=== PATIENT | female | born 1990 ===

== ENCOUNTER 2024-11-29 10:00 | Outpatient (CLI) | payer BC, SELFPAY | END 2024-11-29 10:01 | disposition home or self-care (01) | LOC: NFLDREF 10:02 | PROVIDERS: PCP Family Medicine; Visit Provider Physician Assistant | DX: E04.9 Nontoxic goiter, unspecified (principal) | CPT/HCPCS: 84443 ==

== ENCOUNTER 2024-12-06 13:12 | Outpatient (CLI) | payer BC, SELFPAY ==
--- NOTE | 2024-12-06 13:15 | CRLHL7_ITS ---
For Patients: As a result of the Century Cures Act, medical imaging exams and procedure reports are released immediately into your electronic medical record. You may view this report before your referring provider. If you have questions, please contact your health care provider. INDICATION: Nontoxic goiter COMPARISON: 08/23/2023 TECHNIQUE: Ponce scale and color Doppler images were acquired of the thyroid gland. FINDINGS: Circumscribed anechoic cyst within the left thyroid lobe measures 5.4 x 3.9 x 3.7 cm, TR 1, previously measuring 5.3 x 3.4 x 3.2 cm. The right lobe measures 4.6 x 1.6 x 1.2 cm and the left lobe measures 7.0 x 4 point by 4.2 cm in size. Isthmus measures 2 millimeters. The color Doppler images demonstrate normal vascularity. There is no evidence of cervical lymphadenopathy or parathyroid mass. IMPRESSION: No significant change. Dictated by John Norton MD @ 12/06/2024 5:29:46 PM (Electronically Signed)
--- NOTE | 2024-12-06 14:00 | CRLHL7_ITS ---
For Patients: As a result of the Century Cures Act, medical imaging exams and procedure reports are released immediately into your electronic medical record. You may view this report before your referring provider. If you have questions, please contact your health care provider. INDICATION: Chronic sinusitis. COMPARISON: None. TECHNIQUE: Noncontrast CT of the paranasal sinuses. FINDINGS: Maxillary sinuses are clear. Non obstructing Genie air cell on the left. Os middle complexes are patent. Nasal septal deviation to the right measured approximately 3 mm from midline. Frontal sinuses and mastoid air cells are clear. Sphenoid sinuses are clear. Bilateral sphenoid ostia patent. Mastoid air cells are clear. No facial fractures. Normal orbits bilaterally. IMPRESSION: 1. Paranasal sinuses and mastoid air cells are clear. 2. No facial fracture Please note that all CT scans at this facility use dose modulation, iterative reconstruction, and/or weight-based dosing when appropriate to reduce radiation dose to as low as reasonably achievable. Dictated by Pb Yoder MD @ 12/07/2024 10:32:25 AM (Electronically Signed)
== END 2024-12-06 13:13 | disposition home or self-care (01) ==
LOC: US 13:14
PROVIDERS: PCP Family Medicine; Visit Provider Physician Assistant
DX: E04.9 Nontoxic goiter, unspecified (principal); J32.9 Chronic sinusitis, unspecified
CPT/HCPCS: 70486; 76536

== ENCOUNTER 2025-02-02 09:29 | Day surgery (SDC) | payer BC, SELFPAY ==
[2025-02-02] VITALS (10 sets, daily range): BP systolic 106–125; BP diastolic 73–95; PULSE 47–62; RESP 12–20; TEMP 36.6–36.9; O2SAT 94–100; BMI 17.4
[2025-02-02 10:05] LABS: Ur HCG Qualitative* Negative (Negative)
--- NOTE | 2025-02-02 10:17 | P.ANES_ITS ---
Anesthesia Charges Start Date/Time Anesthesia Start Date: 02/02/25 Anesthesia Start Time: 11:15 Stop Date/Time Anesthesia Stop Date: 02/02/25 Anesthesia Stop Time: 12:03 Coding CPT Codes CPT Codes: ANESTH NOSE/SINUS SURGERY - 38195 ([id number]) P1 - NORMAL HEALTHY PATIENT, QK - FINISHING MANAGER 2-4 CNCRNT ANES PROC, QX - COMPUTER DISCOVERY TEACHER SVKaylen W/ MED DIRECTION
--- NOTE | 2025-02-02 10:17 | W.ANESCHARGE ---
Anesthesia Charges Start Date/Time Anesthesia Start Date: 02/02/25 Anesthesia Start Time: 11:15 Stop Date/Time Anesthesia Stop Date: 02/02/25 Anesthesia Stop Time: 12:03 Coding CPT Codes CPT Codes: ANESTH NOSE/SINUS SURGERY - 13074 ([id number]) P1 - NORMAL HEALTHY PATIENT, QK - CREDIT RISK SPECIALIST 2-4 CNCRNT ANES PROC, QX - SIDE SEAM MACHINE OPERATOR SVKaylen W/ MED DIRECTION
[2025-02-02] MEDS: LACTATED RINGERS 1000 ML 1,000 ML 100 ML IV (10:30)
[2025-02-02] MEDS: SODIUM CHLORIDE 0.9 % (FLUSH) 10 ML SYRINGE IVF (10:30)
[2025-02-02] MEDS: OXYMETAZOLINE 0.05% NASAL SPRAY 2 SPRAY NOSTRIL-B (10:40)
[2025-02-02] MEDS: SCOPOLAMINE 1 MG/3 DAY PATCH 1 PATCH TRANSDERMA (10:45)
[2025-02-02] MEDS: BUPIVACAINE 0.5%/EPINEPHRINE 0.9 MG (30.9 ML) INJECTION (11:28)
[2025-02-02] MEDS: MUPIROCIN 1 GM PACKET 1 APPLIC TOPICAL (11:40)
--- NOTE | 2025-02-02 11:46 | P.ENTPROC_ITS ---
Procedure Note Date of procedure: 02/02/25 Procedure: Preop diagnosis nasal obstruction, deviated septum, left inferior turbinate hypertrophy Postop diagnosis same Procedure nasal septoplasty, submucous partial resection left inferior turbinate Under general trach anesthesia patient was prepped and draped usual fashion the nose decongested injected. A right hemitransfixion incision was made left anterior and posterior tunnels were created. A vertical incision was made through the cartilage just anterior to the junction with bone and a right posterior tunnel created. The posterior superior right area 3 4 and deflection was resected in a piece trimmed and returned to intraseptal space. The anterior septum simply moved to midline. The hemitransfixion was closed with 2 4-0 chromic sutures. A stab incision was made in the anterior left inferior turbinate a tunnel created with a Montague dissector. The tamanna bone was outfractured and a conservative anterior submucous resection was performed. The Coblation was used for hemostasis and to cauterize intramurally along the inferior 10%. I did cauterize a little intramurally submucosally on the right inferior turbinate anterior head. Silastic stents were secured with 3-0 nylon. Merocel packing coated in Bactroban was placed by the middle meatus on each side. The patient procedure well was taken recovery in satisfactory condition blood loss less than 10 mL. Surgeon: Chucho Mendez MD
--- NOTE | 2025-02-02 12:18 | P.ANES_ITS ---
Anesthesia Charges Start Date/Time Anesthesia Start Date: 02/02/25 Anesthesia Start Time: 11:15 Stop Date/Time Anesthesia Stop Date: 02/02/25 Anesthesia Stop Time: 12:03 Coding CPT Codes CPT Codes: ANESTH NOSE/SINUS SURGERY - 24080 ([id number]) P1 - NORMAL HEALTHY PATIENT, QK - TOBACCO WAREHOUSE AGENT 2-4 CNCRNT ANES PROC
--- NOTE | 2025-02-02 12:18 | W.ANESCHARGE ---
Anesthesia Charges Start Date/Time Anesthesia Start Date: 02/02/25 Anesthesia Start Time: 11:15 Stop Date/Time Anesthesia Stop Date: 02/02/25 Anesthesia Stop Time: 12:03 Coding CPT Codes CPT Codes: ANESTH NOSE/SINUS SURGERY - 75314 ([id number]) P1 - NORMAL HEALTHY PATIENT, QK - SKIDDER LOADER 2-4 CNCRNT ANES PROC
[2025-02-02] MEDS: ACETAMINOPHEN 325 MG TABLET 650 MG PO (13:15)
[2025-02-02] MEDS: IBUPROFEN 400 MG TABLET PO (13:20)
== END 2025-02-02 13:54 | disposition home or self-care (01) ==
LOC: OR 09:30
PROVIDERS: Anesthesiology; PCP Family Medicine; Visit Provider Otolaryngology
PROC: (CPT 30520; principal; 2025-02-02 11:00)
DX: J34.2 Deviated nasal septum (principal); J34.3 Hypertrophy of nasal turbinates; J34.89 Other specified disorders of nose and nasal sinuses
CPT/HCPCS: 30520; 30140; 00160; 81025; A9270; J0330; J1100; J2250; J2405; J2704; J2710; J3010; J7120